=== PATIENT | male | born 1995 | race Caucasian/White ===

== ENCOUNTER 2017-08-27 15:06 | Emergency (ER) | payer OTHER ==
[~2017-08-27] VITALS: Ht 188 cm; Wt 80.0 kg
[2017-08-27] MEDS ORDERED: TRAM50TA2 PO (15:26)
[2017-08-27] MEDS ORDERED: NAPR-56 PO (15:26)
[2017-08-27 16:26] VITALS: BP 108/64
== END 2017-08-27 16:30 | disposition home or self-care (01) ==
LOC: ER 15:07
DX: K00.6 Disturbances in tooth eruption (principal)
CPT/HCPCS: 99283